=== PATIENT | female | born 1940 | race Caucasian/White ===

== ENCOUNTER 2020-05-28 13:15 | Emergency (ER) | payer MEDICARE, OTHER ==
[2020-05-28 14:31] LABS: HEMOGLOBIN 13.2 gm/dl (12.3-15.3); RED BLOOD COUNT 4.5 M/UL (4.00-5.10); WHITE BLOOD COUNT 14.3 K/UL (4.5-11.0)
[2020-05-28 15:00] LABS: BUN/CREATININE RATIO 26 (0-10)
[2020-05-28] MEDS ORDERED: PROAIR HFA8.5 GM INH (20:10)
[2020-05-28] MEDS ORDERED: ONDANSETRON ODT4 MG SL (20:10)
== END 2020-05-28 20:19 | disposition home or self-care (01) ==
LOC: ER1 13:15
PROVIDERS: Physician Assistant
DX: R19.04 Left lower quadrant abdominal swelling, mass and lump (principal); J40 Bronchitis, not specified as acute or chronic; R11.2 Nausea with vomiting, unspecified; R19.7 Diarrhea, unspecified; F17.210 Nicotine dependence, cigarettes, uncomplicated; Z20.822 Contact with and (suspected) exposure to COVID-19; E78.00 Pure hypercholesterolemia, unspecified; Z85.850 Personal history of malignant neoplasm of thyroid; Z79.899 Other long term (current) drug therapy
CPT/HCPCS: 0240U; 71045; 80053; 81001; 83690; 85025; 96374; 99284; J2405; Q9967